=== PATIENT | male | born 1960 | race Caucasian/White ===

== ENCOUNTER 2018-09-07 14:03 | Outpatient (CLI) | payer OTHER ==
[2018-09-07] MEDS ORDERED: ACET-812 PO (15:06)
[2018-09-07] MEDS ORDERED: MELO7.5T12 PO (15:06)
[2018-09-07] MEDS ORDERED: METH-360 PO (15:06)
[2018-09-07 15:40] LABS: BASOPHILS # (AUTO) 0.1 X10'3 (0-0.2); BASOPHILS % (AUTO) 0.9 % (0-1); EOSINOPHILS # (AUTO) 0.2 X10'3 (0-0.9); EOSINOPHILS % (AUTO) 3.5 % (0-6); LYMPHOCYTES # (AUTO) 1.8 X10'3 (1.1-4.8); LYMPHOCYTES % (AUTO) 26.4 % (21-51); MEAN CORPUSCULAR HEMOGLOBIN 31.8 PG (27.0-31.0); MEAN CORPUSCULAR HGB CONC 34.7 g/dL (33.0-36.5); MEAN CORPUSCULAR VOLUME 91.7 FL (78-98); MEAN PLATELET VOLUME 8.1 FL (7.4-10.4); MONOCYTES # (AUTO) 0.6 X10'3 (0-0.9); MONOCYTES % (AUTO) 8.3 % (2-12); NEUTROPHILS # (AUTO) 4.2 X10'3 (1.8-7.7); NEUTROPHILS % (AUTO) 60.9 % (42-75); PRE OP HEMATOCRIT 48.6 % (42.0-52.0); PRE OP HEMOGLOBIN 16.8 g/dL (14.0-17.9); PRE OP PLATELET COUNT 227 X10'3 (140-440); RED CELL DISTRIBUTION WIDTH 13.4 % (11.5-14.5)
[2018-09-07 16:11] LABS: ALBUMIN 3.9 G/DL (3.4-5.0); ALBUMIN/GLOBULIN RATIO 1.1 (1.1-1.5); ALKALINE PHOSPHATASE 125 IU/L (46-116); BLOOD UREA NITROGEN 13 MG/DL (7-18); BUN/CREATININE RATIO 16.3 (5.4-32.0); CALCIUM 8.5 MG/DL (8.5-10.1); CHLORIDE 103 MMOL/L (99-107); PRE OP ALT 58 U/L (30-65); PRE OP ANION GAP 10 (8-16); PRE OP AST 22 U/L (10-37); PRE OP BILIRUB, TOTAL 0.5 MG/DL (0.0-1.0); PRE OP GLUCOSE 91 MG/DL (70-104); PRE OP POTASSIUM 3.8 MMOL/L (3.4-5.1); PRE OP SODIUM 140 MMOL/L (135-145); TOTAL CARBON DIOXIDE 27.5 MMOL/L (24-32); TOTAL PROTEIN 7.6 G/DL (6.4-8.2); eGFR > 90 ML/MIN
== END 2018-09-07 23:59 | disposition home or self-care (01) ==
LOC: PRE-OP 14:03 → EDSTATUS 09-15 11:00
PROVIDERS: ATTEND Orthopaedic Surgery
DX: Z01.818 Encounter for other preprocedural examination (principal)
CPT/HCPCS: 36415; 80053; 85025; 85610; 85730; 86885; 86900; 86901; 87070; 93005

== ENCOUNTER 2018-11-03 05:25 | Inpatient (IN) | payer OTHER ==
[2018-10-28 16:05] LABS: BASOPHILS # (AUTO) 0.1 X10'3 (0-0.2); EOSINOPHILS # (AUTO) 0.1 X10'3 (0-0.9); LYMPHOCYTES # (AUTO) 1.6 X10'3 (1.1-4.8); LYMPHOCYTES % (AUTO) 23.7 % (21-51); MEAN CORPUSCULAR HEMOGLOBIN 31.9 PG (27.0-31.0); MEAN CORPUSCULAR HGB CONC 35.3 g/dL (33.0-36.5); MEAN CORPUSCULAR VOLUME 90.3 FL (78-98); MEAN PLATELET VOLUME 8.4 FL (7.4-10.4); MONOCYTES # (AUTO) 0.7 X10'3 (0-0.9); MONOCYTES % (AUTO) 9.9 % (2-12); NEUTROPHILS # (AUTO) 4.3 X10'3 (1.8-7.7); NEUTROPHILS % (AUTO) 63.4 % (42-75); PRE OP HEMATOCRIT 47.1 % (42.0-52.0); PRE OP HEMOGLOBIN 16.6 g/dL (14.0-17.9); PRE OP PLATELET COUNT 211 X10'3 (140-440); RED BLOOD COUNT 5.22 X10'6 (4.70-6.10); RED CELL DISTRIBUTION WIDTH 13.7 % (11.5-14.5)
[2018-10-28 16:13] LABS: ALBUMIN/GLOBULIN RATIO 1.1 (1.1-1.5); ALKALINE PHOSPHATASE 111 IU/L (46-116); BLOOD UREA NITROGEN 17 MG/DL (7-18); BUN/CREATININE RATIO 18.5 (5.4-32.0); CALCIUM 9.1 MG/DL (8.5-10.1); CHLORIDE 104 MMOL/L (99-107); CREATININE 0.92 MG/DL (0.60-1.10); PRE OP ALT 30 U/L (30-65); PRE OP ANION GAP 7 (8-16); PRE OP AST 12 U/L (10-37); PRE OP BILIRUB, TOTAL 0.6 MG/DL (0.0-1.0); PRE OP GLUCOSE 80 MG/DL (70-104); PRE OP POTASSIUM 3.8 MMOL/L (3.4-5.1); PRE OP SODIUM 141 MMOL/L (135-145); TOTAL CARBON DIOXIDE 30.2 MMOL/L (24-32); TOTAL PROTEIN 7.7 G/DL (6.4-8.2); eGFR 85 ML/MIN
[2018-11-03] VITALS (24 sets, daily range): BP systolic 103–147; BP diastolic 50–86
[~2018-11-03] VITALS: Ht 190.5 cm; Wt 106.0 kg
[~2018-11-03 05:25] MED LIST: ACET-812 PO; RANI150C4 PO; ringers solution, lacted 1,000 ML IV SCH
[2018-11-03] MEDS ORDERED: gabapentin 300mg capsule PO ONE (05:30)
[2018-11-03] MEDS ORDERED: ceFAZolin 2gm in dextrose, iso 100 ML IV ONE (05:30)
[2018-11-03] MEDS ORDERED: tranexamic acid inj. 1,000 MG in normal saline 100 ML IV ONE (05:30)
[2018-11-03] MEDS ORDERED: famotidine 20mg tablet PO ONE (05:30)
[2018-11-03] MEDS ORDERED: oxyCODONE SR 10mg (sust. release) tab -2 tabs (20mg) PO ONE (05:30)
[2018-11-03] MEDS ORDERED: acetaminophen 325mg tablet PO ONE (05:30)
[2018-11-03] MEDS ORDERED: vancomycin inj 1,500 MG in normal saline 300ml IV soln IV ONE (05:30)
[2018-11-03] MEDS ORDERED: metoclopramide 5 mg/ml inj IV ONE (05:30)
[2018-11-03] MEDS ORDERED: LIDOcaine 1% (10mg/ml) 2ml vial ONE (05:47)
[2018-11-03] MEDS ORDERED: ceFAZolin 1000mg inj ONE (06:51)
[2018-11-03] MEDS ORDERED: Thrombin (Bovine) 5,000 unit vial TP ONE (06:51)
[2018-11-03] MEDS ORDERED: tetracaine 1% (10mg/ml) pres. free inj. ONE (07:18)
[2018-11-03] MEDS ORDERED: morphine /PF 1mg/ml 10ml inj. ONE (07:27)
[2018-11-03] MEDS ORDERED: MIDAZolam 5mg/5ml vial ONE (07:27)
[2018-11-03] MEDS ORDERED: fentaNYL/PF 50MCG/1 ML 2ML syringe ONE (07:27)
[2018-11-03] MEDS ORDERED: sevoflurane 250ml liquid IH ONE (07:33)
[2018-11-03] MEDS ORDERED: ePHEDrine 50MG/ML INJ. ONE (07:33)
[2018-11-03] MEDS ORDERED: propofol inj 20 ML IV ONE ×2 (08:10→09:35)
[2018-11-03] MEDS ORDERED: LIDOcaine 1%/PF 5ML 10 MG/ML VIAL ONE (08:10)
[2018-11-03] MEDS ORDERED: calcium chloride 100 MG/1 ML inj IV ONE (08:25)
[2018-11-03] MEDS ORDERED: midazolam 2 mg/2 ml injection ONE (08:25)
[2018-11-03] MEDS ORDERED: ringers solution, lacted 1,000 ML IV SCH (09:06)
[2018-11-03] MEDS ORDERED: proCHLORperazine 10 MG/2 ml inj IV PRN (09:10)
[2018-11-03] MEDS ORDERED: ondansetron/PF 4mg/2ml inj IV PRN ×3 (09:10→11:25)
[2018-11-03] MEDS ORDERED: morphine 4 MG/ML inj SYRINge IV PRN ×2 (09:10)
[2018-11-03] MEDS ORDERED: meperidine/PF 25mg/ml syringe IV PRN ×3 (09:10)
[2018-11-03] MEDS ORDERED: vancomycin 1,000mg inj ONE (09:32)
[2018-11-03] MEDS ORDERED: metoprolol tartrate 1mg/ml inj IV ONE (09:35)
[2018-11-03] MEDS ORDERED: succinylcholine 20mg/ml inj IV ONE (09:35)
[2018-11-03] MEDS ORDERED: ondansetron/PF 4mg/2ml inj ONE (09:35)
[2018-11-03] MEDS ORDERED: diphenhydrAMINE 50 mg/ml inj ONE (09:35)
[2018-11-03] MEDS ORDERED: HYDROmorphone 1 mg/ml syringe IV PRN (09:50)
[2018-11-03] MEDS ORDERED: diphenhydrAMINE 25mg capsule PO PRN ×2 (09:50)
[2018-11-03] MEDS ORDERED: HYDROmorphone inj. 0.5 MG/0.5 ML DISP.SYRIN IV PRN (09:50)
[2018-11-03] MEDS ORDERED: oxyCODONE IR 5mg (immed. release) tablet PO PRN (09:50)
[2018-11-03] MEDS ORDERED: magnesium hydroxide 30ml (MOM) UD suspension PO PRN (09:50)
[2018-11-03] MEDS ORDERED: acetaminophen 325mg tablet PO PRN (09:50)
[2018-11-03] MEDS ORDERED: bisacodyl 10mg suppository rectal RC PRN (09:50)
--- NOTE | 2018-11-03 10:07 | NUR ---
Received from OR via BED, accompanied by Anesthesiologist DR BURGESS and report given by Anesthesiologist. PT DROWSY, DENIES PAIN, LEFT HIP W/DRSG, WRAP, ICE PACK AND ORACIO DRAIN, JACOBO CATHETER TO GRAVITY DRAINAGE. Addendum: 11/03/18 at 1046 by Marlene Hernandez RN Amended: Links added.
[2018-11-03 10:35] LABS: ISTAT ANION GAP 12 (8-12); ISTAT BUN 9 mg/dL (6-19); ISTAT CL 102 mmol/L (99-107); ISTAT CREATININE 0.6 mg/dL (0.8-1.3); ISTAT GLUCOSE 82 mg/dL (70-104); ISTAT HGB 9.2 g/dl (14.0-18.0); ISTAT Hct 27 %PCV (42-52); ISTAT IONIZED CALCIUM 1.12 mmol/L (1.03-1.32); ISTAT NA 138 mmol/L (135-145); ISTAT TOTAL CO2 24 mmol/L (24-32); ISTAT eGFR > 90 ML/MIN
[2018-11-03] MEDS ORDERED: naloxone 2mg/2ml inj 2 MG in normal saline 500ml IV soln 500 ML IV PRN (11:23)
[2018-11-03] MEDS ORDERED: diphenhydrAMINE 50 mg/ml inj IV PRN (11:25)
--- NOTE | 2018-11-03 12:55 | NUR ---
Received report from Marlene ABBASI in recovery. Pt A & O, in good spirits. Tucked pt in, provided comfort measures.
[2018-11-03] MEDS ORDERED: tranexamic acid inj. 1,000 MG in normal saline 100ml IV soln 100 ML IV ONE (13:00)
--- NOTE | 2018-11-03 13:17 | NUR ---
Report called to receiving nurse. Transferred via BED, NO Belongings, RECEIVING RN AT BEDSIDE TO RECEIVE PT, BLL, CALL LIGHT GIVEN, SIDE RAILS UP X 2, Special Issues communicated to receiving nurse. YES. Addendum: 11/03/18 at 1343 by Marlene Hernandez RN Amended: Links added.
--- NOTE | 2018-11-03 13:20 | NUR ---
Pt arrived at 13:20. Tucked in, provided comfort measures.
[2018-11-03] MEDS: acetaminophen 325mg tablet PO SCH ×2 (13:47→20:26)
[2018-11-03] MEDS: gabapentin 300mg capsule PO SCH ×2 (13:47→20:25)
[2018-11-03] MEDS: potassium cl 20mEq in 1/2 NS 1,000 ML IV SCH ×3 (15:08→20:23)
[2018-11-03] MEDS: ceFAZolin 1GM/D5W- ADD-VANTAGE 50 ML IV SCH (16:24)
--- NOTE | 2018-11-03 16:42 | NUR ---
Student Medication Administration: For this medication-pass time frame, all medication were reviewed, dispensed, administered and documented per hospital policy by SN Etelvina.
[2018-11-03] MEDS: oxyCODONE IR 5mg (immed. release) tablet PO PRN ×2 (17:20→21:31)
[2018-11-03] MEDS ORDERED: famotidine 20mg tablet PO PRN (17:25)
--- NOTE | 2018-11-03 18:12 | NUR ---
RECEIVED REPORT FROM BRAYAN ABBASI AND ASSUMED PATIENT CARE
--- NOTE | 2018-11-03 18:12 | NUR ---
Problems reprioritized. Patient report given, questions answered & plan of care reviewed with Carrie.
[2018-11-03] MEDS ORDERED: vancomycin/NS 1 GM ADD-VANTAGE 250 ML IV SCH (20:00)
[2018-11-03] MEDS: sennosides 8.6mg tablet PO SCH (20:26)
[2018-11-04] VITALS (7 sets, daily range): BP systolic 110–142; BP diastolic 65–85
[2018-11-04] MEDS: ceFAZolin 1GM/D5W- ADD-VANTAGE 50 ML IV SCH (01:31)
[2018-11-04] MEDS: oxyCODONE IR 5mg (immed. release) tablet PO PRN ×4 (01:32→20:17)
[2018-11-04] MEDS: acetaminophen 325mg tablet PO SCH ×4 (01:32→20:16)
[2018-11-04] MEDS ORDERED: mag hydrox/Alum hydrox/simeth 30ml oral suspension PO PRN (04:35)
[2018-11-04] MEDS: pantoprazole 40mg Tablet.DR PO SCH (04:45)
[2018-11-04 05:44] LABS: BASOPHILS % (AUTO) 0.4 % (0-1); EOSINOPHILS % (AUTO) 0.3 % (0-6); HEMATOCRIT 36.9 % (42.0-52.0); HEMOGLOBIN 12.9 g/dl (14.0-17.9); LYMPHOCYTES # (AUTO) 0.9 X10'3 (1.1-4.8); LYMPHOCYTES % (AUTO) 8.5 % (21-51); MEAN CORPUSCULAR HEMOGLOBIN 31.5 PG (27.0-31.0); MEAN CORPUSCULAR VOLUME 89.8 FL (78-98); MEAN PLATELET VOLUME 8.6 FL (7.4-10.4); MONOCYTES % (AUTO) 9.5 % (2-12); NEUTROPHILS # (AUTO) 8.9 X10'3 (1.8-7.7); NEUTROPHILS % (AUTO) 81.3 % (42-75); PLATELET COUNT 173 X10'3 (140-440); RED BLOOD COUNT 4.11 X10'6 (4.70-6.10); RED CELL DISTRIBUTION WIDTH 13.1 % (11.5-14.5); WHITE BLOOD COUNT 10.9 X10'3 (4.5-11.0)
--- NOTE | 2018-11-04 06:13 | NUR ---
REPORT GIVEN TO SALINA ABBASI
--- NOTE | 2018-11-04 06:41 | NUR ---
Patient in room [facility]TH[facility] 4010. I have received report from Carrie ABBASI and had the opportunity to ask questions and assume patient care.
[2018-11-04] MEDS: enoxaparin 40mg/0.4ml syringe SQ SCH (07:59)
[2018-11-04] MEDS: gabapentin 300mg capsule PO SCH ×3 (08:00→20:18)
[2018-11-04] MEDS: potassium cl 20mEq in 1/2 NS 1,000 ML IV SCH ×2 (10:28→17:27)
--- NOTE | 2018-11-04 10:37 | NUR ---
Joint replacement consult: Pt/family seen by LORENA for written/verbal high protein ed. RD reviewed high protein needs for wound healing, immune strength, high protein foods, and protein supplementation options. RD contact information provided in case of further questions. Pt agrees to chocolate ensure high protein TIDWM; dietary and MD notified. Addendum: 11/04/18 at [address] Amended: Links added.
--- NOTE | 2018-11-04 18:13 | NUR ---
Problems reprioritized. Patient report given, questions answered & plan of care reviewed with Rosio Gayle RN.
--- NOTE | 2018-11-04 18:35 | NUR ---
received report from Chirag. Patient eating dinner at this time.
[2018-11-04] MEDS: sennosides 8.6mg tablet PO SCH (20:17)
[2018-11-05] MEDS: oxyCODONE IR 5mg (immed. release) tablet PO PRN ×5 (00:48→22:16)
[2018-11-05] MEDS: potassium cl 20mEq in 1/2 NS 1,000 ML IV SCH (01:50)
[2018-11-05] MEDS: acetaminophen 325mg tablet PO SCH ×2 (01:51→07:24)
[2018-11-05 06:00] VITALS: BP 117/75
--- NOTE | 2018-11-05 06:00 | NUR ---
Patient in room [facility]TH[facility] 4010. I have received report from Rosio Heath RN and had the opportunity to ask questions and assume patient care.
--- NOTE | 2018-11-05 06:31 | NUR ---
Problems reprioritized. Patient report given, questions answered & plan of care reviewed with ELROY Livingston.
[2018-11-05 07:13] LABS: BASOPHILS # (AUTO) 0.1 X10'3 (0-0.2); BASOPHILS % (AUTO) 0.6 % (0-1); EOSINOPHILS # (AUTO) 0.1 X10'3 (0-0.9); EOSINOPHILS % (AUTO) 0.7 % (0-6); HEMATOCRIT 37.3 % (42.0-52.0); HEMOGLOBIN 12.9 g/dl (14.0-17.9); LYMPHOCYTES % (AUTO) 11.4 % (21-51); MEAN CORPUSCULAR HEMOGLOBIN 31.5 PG (27.0-31.0); MEAN CORPUSCULAR HGB CONC 34.5 g/dL (33.0-36.5); MEAN CORPUSCULAR VOLUME 91.3 FL (78-98); MEAN PLATELET VOLUME 8.5 FL (7.4-10.4); MONOCYTES # (AUTO) 1.3 X10'3 (0-0.9); NEUTROPHILS # (AUTO) 6.6 X10'3 (1.8-7.7); NEUTROPHILS % (AUTO) 73.3 % (42-75); PLATELET COUNT 164 X10'3 (140-440); RED BLOOD COUNT 4.09 X10'6 (4.70-6.10); RED CELL DISTRIBUTION WIDTH 13.4 % (11.5-14.5); WHITE BLOOD COUNT 9.1 X10'3 (4.5-11.0)
[2018-11-05] MEDS: pantoprazole 40mg Tablet.DR PO SCH (07:24)
[2018-11-05] MEDS: enoxaparin 40mg/0.4ml syringe SQ SCH (07:25)
[2018-11-05] MEDS: gabapentin 300mg capsule PO SCH ×3 (07:28→21:00)
[2018-11-05] MEDS ORDERED: acetaminophen 325mg tablet PO PRN (09:50)
[2018-11-05 10:00] VITALS: BP 122/70
[2018-11-05 18:00] VITALS: BP 131/77
--- NOTE | 2018-11-05 18:07 | NUR ---
Problems reprioritized. Patient report given, questions answered & plan of care reviewed with Angela Heath RN.
--- NOTE | 2018-11-05 18:28 | NUR ---
PATIENT REPORT RECEIVED FROM BRAYAN ABBASI.
[2018-11-05] MEDS: sennosides 8.6mg tablet PO SCH (19:50)
[2018-11-05 22:00] VITALS: BP 135/72
[2018-11-06] MEDS: oxyCODONE IR 5mg (immed. release) tablet PO PRN ×3 (02:46→10:36)
[2018-11-06 06:00] VITALS: BP 118/75
--- NOTE | 2018-11-06 06:35 | NUR ---
Patient in room [facility]TH[facility] 4010. I have received report from Angela Gayle RN and had the opportunity to ask questions and assume patient care.
[2018-11-06] MEDS: gabapentin 300mg capsule PO SCH (07:08)
[2018-11-06 07:26] LABS: BASOPHILS % (AUTO) 0.6 % (0-1); EOSINOPHILS # (AUTO) 0.1 X10'3 (0-0.9); EOSINOPHILS % (AUTO) 1.7 % (0-6); HEMATOCRIT 33.4 % (42.0-52.0); HEMOGLOBIN 11.4 g/dl (14.0-17.9); LYMPHOCYTES # (AUTO) 1.1 X10'3 (1.1-4.8); LYMPHOCYTES % (AUTO) 14.3 % (21-51); MEAN CORPUSCULAR HEMOGLOBIN 31.1 PG (27.0-31.0); MEAN CORPUSCULAR HGB CONC 34.3 g/dL (33.0-36.5); MEAN CORPUSCULAR VOLUME 90.8 FL (78-98); MEAN PLATELET VOLUME 8.5 FL (7.4-10.4); NEUTROPHILS # (AUTO) 5.4 X10'3 (1.8-7.7); NEUTROPHILS % (AUTO) 70.4 % (42-75); PLATELET COUNT 178 X10'3 (140-440); RED BLOOD COUNT 3.68 X10'6 (4.70-6.10); RED CELL DISTRIBUTION WIDTH 13.4 % (11.5-14.5); WHITE BLOOD COUNT 7.7 X10'3 (4.5-11.0)
[2018-11-06] MEDS: pantoprazole 40mg Tablet.DR PO SCH (08:21)
[2018-11-06] MEDS: enoxaparin 40mg/0.4ml syringe SQ SCH (08:22)
--- NOTE | 2018-11-06 09:47 | NUR ---
Left Dr. Ardon a message that PT cleared patient to d/c today to home, can orders be put in
[2018-11-06 10:00] VITALS: BP 115/76
--- NOTE | 2018-11-06 11:00 | NUR ---
Patient discharged home with , educated on hip precautions and follow up care, IV taken out and patient stable for discharge
== END 2018-11-06 11:05 | disposition home or self-care (01) | DRG 470 ==
LOC: PAS IN 05:25 → EDSTATUS 07:30 → ORTHO 4S 13:20
PROVIDERS: ADMIT Orthopaedic Surgery; ATTEND Orthopaedic Surgery
PROC: 0SRB06A Replacement of Left Hip Joint with Oxidized Zirconium on Polyethylene Synthetic Substitute, Uncemented, Open Approach (ICD-10-PCS; principal; 2018-11-03 07:33)
DX: M16.12 Unilateral primary osteoarthritis, left hip (principal); D64.9 Anemia, unspecified; K21.9 Gastro-esophageal reflux disease without esophagitis
CPT/HCPCS: 36415; 72170; 80047; 80053; 82948; 85025; 86885; 86900; 86901; 87070; 93005; 97110; 97116; 97162; 97530; A7000; C1758; C1776; G0378; J0330; J0690; J1200; J1650; J2001; J2250; J2274; J2405; J2704; J2765; J3010; J3370; J3490; J7030; J7120

== ENCOUNTER 2023-10-07 05:33 | Day surgery (SDC) | payer BC ==
[2023-09-28 12:27] LABS: BASOPHILS # (AUTO) 0.1 X10'3 (0-0.2); EOSINOPHILS # (AUTO) 0.2 X10'3 (0-0.9); EOSINOPHILS % (AUTO) 4.4 % (0-6); LYMPHOCYTES # (AUTO) 1.7 X10'3 (1.1-4.8); LYMPHOCYTES % (AUTO) 30.4 % (21-51); MEAN CORPUSCULAR HGB CONC 34.2 g/dL (33.0-36.5); MEAN CORPUSCULAR VOLUME 90.5 FL (78-98); MEAN PLATELET VOLUME 8.3 FL (7.4-10.4); MONOCYTES # (AUTO) 0.4 X10'3 (0-0.9); NEUTROPHILS # (AUTO) 3.1 X10'3 (1.8-7.7); NEUTROPHILS % (AUTO) 56.2 % (42-75); PRE OP HEMATOCRIT 47.4 % (42.0-52.0); PRE OP HEMOGLOBIN 16.2 g/dL (14.0-17.9); PRE OP PLATELET COUNT 194 X10'3 (140-440); PRE OP WHITE BLOOD COUNT 5.5 10'3 (4.8-10.8); RED BLOOD COUNT 5.24 X10'6 (4.70-6.10); RED CELL DISTRIBUTION WIDTH 13.8 % (11.5-14.5)
[2023-09-28 12:39] LABS: ALBUMIN 3.8 G/DL (3.4-5.0); ALBUMIN/GLOBULIN RATIO 1.1 (1.1-1.5); ALKALINE PHOSPHATASE 111 IU/L (46-116); BLOOD UREA NITROGEN 11 MG/DL (7-18); BUN/CREATININE RATIO 13.3 (10.0-20.0); CALCIUM 8.4 MG/DL (8.5-10.1); CHLORIDE 104 MMOL/L (99-107); CREATININE 0.83 MG/DL (0.60-1.10); PRE OP ALT 72 U/L (30-65); PRE OP ANION GAP 9 (8-16); PRE OP AST 42 U/L (10-37); PRE OP BILIRUB, TOTAL 0.7 MG/DL (0.0-1.0); PRE OP GLUCOSE 83 MG/DL (70-104); PRE OP POTASSIUM 4.3 MMOL/L (3.4-5.1); PRE OP SODIUM 142 MMOL/L (135-145); TOTAL PROTEIN 7.4 G/DL (6.4-8.2); eGFR > 90 ML/MIN
[2023-10-07] VITALS (20 sets, daily range): BP systolic 108–147; BP diastolic 62–87; PULSE 62–94; RESP 13–16; TEMP 96.9–98.6; O2SAT 93–99
[~2023-10-07] VITALS: Ht 190.5 cm; Wt 112.0 kg
[~2023-10-07 05:33] MED LIST changes: -ACET-812 PO; +OMEP40CA21 PO; -RANI150C4 PO; -ringers solution, lacted 1,000 ML IV SCH
[2023-10-07] MEDS: tranexamic acid inj. 1,000 MG in normal saline IV soln 100ML IV ONE (06:13)
[2023-10-07] MEDS: cefazolin 2gm/D5W 100mL 100 ML IV ONE (06:13)
[2023-10-07] MEDS: famotidine 20mg tablet PO ONE (06:14)
[2023-10-07] MEDS: vancomycin 1,500 MG in NS 300ml IV soln IV ONE (06:15)
[2023-10-07] MEDS: ringers solution, lacted 1,000 ML IV SCH (06:15)
[2023-10-07] MEDS ORDERED: vancomycin 1,000mg inj ONE (06:38)
[2023-10-07] MEDS ORDERED: cloNIDine hcl/PF 100mcg/ml inj ONE (07:09)
[2023-10-07] MEDS ORDERED: fentaNYL/PF 50MCG/1 ML 2ML syringe ONE ×3 (07:28→14:47)
[2023-10-07] MEDS ORDERED: MIDAZolam 1 MG/ML 5ML VIAL ONE ×3 (07:29→14:35)
[2023-10-07] MEDS ORDERED: tetracaine 1% (10mg/ml) pres. free inj. ONE ×2 (07:31→12:07)
[2023-10-07] MEDS ORDERED: BUPIVAcaine/dex-water/PF 7.5 mg/ml 2ml ampul ONE (12:17)
[2023-10-07] MEDS ORDERED: propofol inj 20 ML IV ONE ×3 (13:21)
[2023-10-07] MEDS ORDERED: ePHEDrine 50MG/ML INJ. ONE (13:21)
[2023-10-07] MEDS ORDERED: ROPIVAcaine 0.5% (5mg/ml) 30ml vial ONE (13:21)
[2023-10-07] MEDS ORDERED: 0.9 % SODIUM CHLORIDE 10 ML VIAL ONE (13:21)
[2023-10-07] MEDS ORDERED: dexamethasone sod phosphate 4mg/ml inj. ONE (13:22)
[2023-10-07] MEDS: vancomycin 1,000mg inj IVT ONE (13:35)
[2023-10-07] MEDS ORDERED: labetalol 20mg/4ml (5mg/ml) syringe IV PRN (13:45)
[2023-10-07] MEDS ORDERED: proCHLORperazine 10 MG/2 ml inj IV PRN (13:45)
[2023-10-07] MEDS ORDERED: morphine 2 MG/ML inj. syringe IV PRN (13:45)
[2023-10-07] MEDS ORDERED: enalaprilat dihydrate 2.5mg/2ml vial IV PRN (13:45)
[2023-10-07] MEDS ORDERED: meperidine/PF 25mg/ml syringe IV PRN ×2 (13:45)
[2023-10-07] MEDS ORDERED: ringers solution, lacted 1,000 ML IV SCH (13:45)
[2023-10-07] MEDS ORDERED: diphenhydrAMINE 25mg capsule PO PRN ×2 (15:30)
[2023-10-07] MEDS ORDERED: oxyCODONE IR 5mg (immed. release) tablet PO PRN (15:30)
[2023-10-07] MEDS ORDERED: magnesium hydroxide 30ml (MOM) UD suspension PO PRN (15:30)
[2023-10-07] MEDS ORDERED: HYDROmorphone inj. 0.5 MG/0.5 ML DISP.SYRIN IV PRN (15:30)
[2023-10-07] MEDS ORDERED: bisacodyl 10mg suppository rectal RC PRN (15:30)
[2023-10-07] MEDS ORDERED: acetaminophen 325mg tablet PO PRN (15:30)
[2023-10-07] MEDS ORDERED: naloxone 0.4 mg/ml inj IV PRN ×2 (15:30→16:40)
[2023-10-07] MEDS: meperidine/PF 25mg/ml syringe IV PRN (16:14)
[2023-10-07] MEDS: morphine 4 MG/ML inj SYRINge IV PRN (16:22)
[2023-10-07] MEDS: oxyCODONE IR 5mg (immed. release) tablet PO PRN (16:24)
[2023-10-07] MEDS: ondansetron/PF 4mg/2ml inj IV PRN ×2 (16:25→19:46)
[2023-10-07] MEDS: acetaminophen 1,000mg/100ml IV 100 ML IV ONE (16:32)
[2023-10-07] MEDS: normal saline 1000ml 1,000 ML IV SCH (16:40)
[2023-10-07] MEDS: HYDROmorphone 1 mg/ml syringe IV PRN (16:42)
[2023-10-07] MEDS: HYDROmorphone/PF 0.2 MG/ML SYRINGE IV PRN (16:53)
[2023-10-07] MEDS: HYDROmorph/NS 0.2 mg/ml PCA 100 ML IV SCH (17:00)
[2023-10-07] MEDS: ketorolac tromethamine 15mg/ml inj. IV SCH (17:15)
[2023-10-07] MEDS: docusate sod 100mg capsule PO SCH (20:14)
[2023-10-07] MEDS: gabapentin 300mg capsule PO SCH (20:14)
[2023-10-07] MEDS: sennosides 8.6mg tablet PO SCH (20:15)
[2023-10-07] MEDS: potassium Cl 20mEq in NS 1,000 ML IV SCH (20:15)
[2023-10-07] MEDS: tranexamic acid inj. 1,000 MG in normal saline 100ml IV soln 90 ML IV ONE (20:15)
[2023-10-07] MEDS: acetaminophen 325mg tablet PO SCH (20:15)
[2023-10-07] MEDS: vancomycin/NS 1 GM ADD-VANTAGE 250 ML IV SCH (22:14)
[2023-10-08] VITALS (8 sets, daily range): BP systolic 113–123; BP diastolic 67–74; PULSE 72–87; RESP 14–17; TEMP 96.9–98.7; O2SAT 91–99
[2023-10-08] MEDS: pantoprazole 40mg Tablet.DR PO SCH (08:35)
[2023-10-08] MEDS: enoxaparin 40mg/0.4ml syringe SQ SCH (08:36)
[2023-10-08] MEDS: ceFAZolin/D5W- 1GM premix 50 ML IV SCH ×2 (09:13)
[2023-10-08] MEDS: ceFAZolin/D5W- 1GM premix 50 ML IV ONE (09:18)
[2023-10-08] MEDS: PCA WASTE DOCUMENTATION 1 MG ML MC SCH (12:10)
[2023-10-08] MEDS ORDERED: celeCOXIB 100mg capsule PO SCH (20:00)
[2023-10-09] MEDS ORDERED: acetaminophen 325mg tablet PO PRN (15:30)
== END 2023-10-08 14:30 | disposition home or self-care (01) ==
LOC: PAS 05:33 → UNDOADMIN 15:31 → ORTHO 4S 15:31 → PAS 10-08 14:30 → UNDODISIN 10-08 14:30
PROVIDERS: ATTEND Orthopaedic Surgery
DX: M16.11 Unilateral primary osteoarthritis, right hip (principal); G89.18 Other acute postprocedural pain; K21.9 Gastro-esophageal reflux disease without esophagitis; F12.90 Cannabis use, unspecified, uncomplicated; Z79.899 Other long term (current) drug therapy; Z96.611 Presence of right artificial shoulder joint; Z96.642 Presence of left artificial hip joint; Z96.652 Presence of left artificial knee joint; Z98.890 Other specified postprocedural states; Z88.8 Allergy status to other drugs, medicaments and biological substances
CPT/HCPCS: 27130; 36415; 64447; 72170; 73521; 80053; 82948; 85025; 86885; 86900; 86901; 87081; 93005; 97116; 97161; 97530; A6258; C1776; J0131; J0690; J0735; J1100; J1170; J1650; J1885; J2175; J2250; J2270; J2405; J2704; J2795; J3010; J3370; J3480; J3490; J7030; J7120; Z7506; Z7508; Z7512; A4215; A4618; A6449; A7000; C1758; C9250; G0378